=== PATIENT | female | born 1970 | race African-American/Black ===

== ENCOUNTER 2022-03-03 10:23 | Inpatient (IN) | payer MEDICAID ==
[~2022-03-03] VITALS: Ht 149.9 cm; Wt 67.1 kg
[2022-03-03] MEDS ORDERED: MORPHINE SULFATE 4 MG/ML CPJ (NOT FOR IM USE) IV SCH (12:00)
[2022-03-03] MEDS ORDERED: ONDANSETRON HCL 4MG/2ML INJ IV SCH (12:00)
[2022-03-03] MEDS ORDERED: SODIUM CHLORIDE 0.9% 1,000 ML IV SCH (12:00)
[2022-03-03 12:14] LABS: BASOPHILS % 0.8 % (0.0-2.0); CLARITY URINE CLEAR (CLEAR); COLOR URINE YELLOW (YELLOW); EOSINOPHILS % 1.8 % (0.0-5.0); HEMATOCRIT. 37.5 % (36.0-48.0); HEMOGLOBIN. 12.5 g/dL (12.0-16.0); KETONES URINE NEGATIVE (NEGATIVE); LEUKOCYTE ESTERASE URINE NEGATIVE (NEGATIVE); MEAN CORPUSCULAR HEMOGLOBIN 29.7 pg (28.0-32.0); MEAN CORPUSCULAR VOLUME 89.2 fL (81.0-99.0); MEAN PLATELET VOLUME 8.5 fl (7.4-10.4); MONOCYTES % 11.3 % (2.0-8.0); NEUTROPHILS % 46.1 % (40.0-76.0); NITRITE URINE NEGATIVE (NEGATIVE); OCCULT BLOOD URINE NEGATIVE (NEGATIVE); PH URINE 5.5 (4.5-8.0); PLATELET 253 x1000/uL (130-400); PROTEIN URINE NEGATIVE (NEGATIVE); RED BLOOD CELL COUNT 4.21 mill/uL (4.2-5.4); RED CELL DISTRIBUTION WIDTH 14.5 % (11.6-14.6); SPECIFIC GRAVITY URINE 1.016 (1.005-1.030); UROBILINOGEN URINE 0.2 E.U./dL (0.2-1.0)
[2022-03-03 12:20] LABS: CHLORIDE 107 mEq/L (98-107)
[2022-03-03 12:38] LABS: *AMPHETAMINES SCREEN URINE NEGATIVE (NEGATIVE); *BARBITURATES SCREEN URINE NEGATIVE (NEGATIVE); *BENZODIAZEPINES SCREEN URINE PRESUMTIVE POSITIVE (NEGATIVE); *COCAINE SCREEN URINE NEGATIVE (NEGATIVE); CANNABINOID URINE SCREEN NEGATIVE (NEGATIVE); METHADONE URINE SCREEN NEGATIVE (NEGATIVE); OPIATES URINE SCREEN PRESUMTIVE POSITIVE (NEGATIVE); PHENCYCLIDINE URINE SCREEN NEGATIVE (NEGATIVE)
[2022-03-03 13:14] LABS: ETHANOL BLOOD < 10 mg/dL
[2022-03-03 17:20] VITALS: BP 154/87
[2022-03-03 17:55] VITALS: BP 154/87
[2022-03-03] MEDS ORDERED: ASPI-1406 PO (18:24)
[2022-03-03] MEDS ORDERED: LOSA25TA26 MT (18:24)
[2022-03-03] MEDS ORDERED: HYDR25TA MT (18:24)
[2022-03-03] MEDS ORDERED: CLON-457 PO (18:24)
[2022-03-03] MEDS ORDERED: IBUPROFEN 600MG TABLET PO PRN (18:45)
[2022-03-03] MEDS ORDERED: NALOXONE HCL 0.4MG/ML VIAL IV PRN (19:00)
[2022-03-03] MEDS ORDERED: ONDANSETRON HCL 4MG/2ML INJ IV PRN (22:15)
[2022-03-03] MEDS ORDERED: HYDROCODONE/ACETAMINOPHEN 10/325MG TABLET PO PRN (22:15)
[2022-03-03] MEDS ORDERED: MORPHINE SULFATE 4 MG/ML CPJ (NOT FOR IM USE) IV NR (22:15)
[2022-03-04 00:29] VITALS: BP 169/94
[2022-03-04 04:00] VITALS: BP 145/88
[2022-03-04 08:00] VITALS: BP 166/106
[2022-03-04] MEDS ORDERED: HYDROCHLOROTHIAZIDE 25MG TABLET PO SCH (09:00)
[2022-03-04] MEDS ORDERED: ASPIRIN 81MG EC TABLET PO SCH (09:00)
[2022-03-04] MEDS ORDERED: LOSARTAN POTASSIUM 25 MG TABLET PO SCH (09:00)
[2022-03-04] MEDS ORDERED: MEDICATION NOT ON FORMULARY EA (Clonidine HCl (Clonidine HCl ER) 0.1 MG) PO SCH (09:00)
== END 2022-03-04 09:57 | disposition left against medical advice (07) | DRG 48 ==
LOC: ER 10:23 → ENRESERV 15:38 → 7WST 17:38
PROVIDERS: ADMIT Internal Medicine; ATTEND Internal Medicine
DX: G90.8 Other disorders of autonomic nervous system (principal); R56.9 Unspecified convulsions; I10 Essential (primary) hypertension; M79.18 Myalgia, other site; R32 Unspecified urinary incontinence; Z88.0 Allergy status to penicillin; Z53.29 Procedure and treatment not carried out because of patient's decision for other reasons; I25.2 Old myocardial infarction; Z82.49 Family history of ischemic heart disease and other diseases of the circulatory system; Z90.711 Acquired absence of uterus with remaining cervical stump
CPT/HCPCS: 36415; 71045; 72170; 80053; 80305; 80320; 81003; 83735; 83880; 84443; 84484; 85025; 85379; 93005; 93970; 99285; J2270; J2405; G0480